=== PATIENT | female | born 1980 | race Caucasian/White ===

== ENCOUNTER 2017-11-04 13:38 | Emergency (ER) | payer OTHER, SELFPAY ==
[2017-11-04 13:48] VITALS: BP 119/85; PULSE 90; RESP 16; TEMP 36.7; O2SAT 98
--- NOTE | 2017-11-04 13:56 | DI.RPTCT_ITS ---
SYMPTOMS/DIAGNOSIS: LUQ AND RLQ ABD PAIN WORSE AFTER EATING CT OF THE ABDOMEN AND PELVIS: There are no priors comparison exams. Images were performed from the lung bases through the ischial tuberosities after IV and without benefit of oral contrast. The lung bases are clear. Stones are noted in the gallbladder. There is a phrygian cap. There is no gallbladder wall thickening or biliary dilatation. The liver, spleen, pancreas and adrenals are unremarkable. There are several right renal cysts. A few tiny cysts are noted on the left kidney. The appendix appears normal. The patient is status post hysterectomy. The bladder is nearly empty. The ovaries are unremarkable. There is no bowel dilatation or inflammatory change. There is no free air or free fluid. The aorta is normal in diameter. IMPRESSION: Cholelithiasis. There is no evidence of acute cholecystitis. No acute abnormality is seen in the abdomen or pelvis.
[2017-11-04 14:12] LABS: Bilirubin Negative (Negative); Blood Negative (Negative); Clarity Clear; Glucose Negative (Negative); Ketones Trace mg/dL (Negative); Leukocyte Esterase Negative (Negative); Nitrite Negative (Negative); Specific Gravity >= 1.030 (1.005-1.025); Urobilinogen 0.2 EU/dL (Up TO 0.2)
[2017-11-04] MEDS: Sucralfate 1 GM TAB PO (14:19)
--- NOTE | 2017-11-04 14:29 | ED.GENADUL_ITS ---
Disposition Clinical Impression: LUQ pain Disposition: HOME Condition: Good Instructions: Gastritis (ED) Additional Instructions: Please take medication as directed. Please avoid any spicy foods, tomato based products, citrus-based products, or mint. If you notice any worsening of your symptoms, or any new symptoms such as vomiting, diarrhea, fever, chills, shortness of breath, chest pain, numbness, weakness, or fainting , please return immediately to the emergency department for reevaluation. Please follow up with your primary care provider as soon as possible for reassessment and reevaluation. As always, it was a pleasure participating in your medical care today. Prescriptions: Pantoprazole [Protonix] 40 mg PO DAILY #60 tabcr Sucralfate [Carafate] 1 gm PO AC & HS #90 tab Referrals: Efrem Babin [Primary Care Provider] - Medical Decision Making - Lab Data Laboratory Tests 11/04/17 14:05 Urine Color Yellow Urine Clarity Clear Urine pH 5.0 Ur Specific [place] >= 1.030 H Urine Protein Negative Urine Ketones Trace H Urine Blood Negative Urine Nitrite Negative Urine Bilirubin Negative Urine Urobilinogen 0.2 Ur Leukocyte Esterase Negative Urine Glucose Negative - Medical Decision Making This is a pleasant 37-year-old female with a past medical history of anemia and a hysterectomy who presents with 4-5 months of left upper quadrant abdominal pain, particularly worse in the last 3-4 days. It is worsened with food, palpation, certain types of movement. She has had no vomiting or diarrhea. Notable reproducible tenderness on exam. Differential at this time includes gastric ulcer, perforated gastric ulcer, as well as appendicitis with right lower quadrant abdominal pain noted on exam. We will get a CT scan to evaluate for any acute process and reevaluate rehydrate and control her pain. EKG 14: 08 Rate 79, sinus rhythm, MA 150, QTc 436, QRS normal, RSR prime in V1. No ST elevations or depressions. Inverted T-wave is present in lead III. No Q waves. No other abnormalities. On repeat evaluation the patient has near complete resolution of her symptomatology. Her pain is gone. She feels much better after GI cocktail and Protonix. I feel her symptoms most likely secondary to gastric ulcer. Still pending results of the CT scan at this time. Patient will be discharged home with close follow-up, prescriptions for antacid therapy. We discussed red flags which to return the patient understands. I have extensively reviewed the treatment plan and discharge instructions with the patient. I have addressed all patient concerns at this time. The patient was made aware of what symptoms to monitor for that would warrant a return to the emergency department. Discussed the plan with the patient, they demonstrate verbal understanding and agreement with our assessment and plan at this time. Pending CT results at this time. The case will be signed out to my colleague History of Present Illness - General Chief complaint: Abd Prob Stated complaint: L FLANK PAIN Time Seen by Provider: 11/04/17 13:55 - History of Present Illness Initial comments: This is a 37-year-old female with a past medical history of anemia in the past surgical history of hysterectomy who presents today for evaluation of left upper quadrant and right lower quadrant pain. Patient states that she has had this pain for the last 4-5 months however over the last 3 days it is gotten particularly notably worse. It is worsened whenever she eats food, as well as laying on the left-hand side. It is not improved by anything. She has associated nausea but no vomiting. She denies diarrhea, hematochezia, or hematemesis. She denies any acholic stool. She denies any hematuria, dysuria, or increase in urinary frequency. She denies any radiation to her right upper side, or her back. She has no other complaints at this time. She denies any pertinent family history. She denies any IV or illicit drug use. - Related Data Pantoprazole [Protonix] 40 mg PO DAILY #60 tabcr 11/04/17 Sucralfate [Carafate] 1 gm PO AC & HS #90 tab 11/04/17 Allergies Allergy/AdvReac Type Severity Reaction Status Date / Time amoxicillin Allergy Severe throat Unverified 11/04/17 13:57 closes azithromycin [From Zithromax] Allergy Severe throat Unverified 11/04/17 13:56 closes Penicillins Allergy Severe throat Unverified 11/04/17 13:57 closes Review of Systems Other: 10 point review of systems was performed, pertinent positives and negatives are noted in the history of present illness. General Exam - Other Other exam information: 1.Const: Well-nourished, Well-developed, appearing stated age 2.Eyes: PERRL, no conjunctival injection, and symmetrical lids. 3.ENT: Atraumatic external nose and ears. Moist MM. Neck: Symmetric, trachea midline, No thyromegaly. 4.CVS: +S1/S2, No murmurs or gallops. Peripheral pulses 2+ and equal in all extremities. Brisk capillary refill in all extremities. 5.RESP: Unlabored respiratory effort. Clear to auscultation bilaterally. No wheezes rales or rhonchi 6.GI: Soft, no guarding or rebound. Mild reproducible tenderness on palpation of the left upper abdominal quadrant as well as the right lower abdominal quadrant. Negative Jacobsen sign. No flank tenderness. Negative obturator and psoas sign. 7.MSK: Normocephalic/Atraumatic, Extremities w/o deformity or ttp No cyanosis or clubbing, Normal movement of all extremities 8.Skin: Warm, Dry. No rashes or lesions. 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 Sensation grossly intact, no focal neurologic deficits. 10.Psych: (AAO) x3. Appropriate mood and affect Course Vital Signs - 24 hr 11/04/17 13:48 Temperature 36.7 C Pulse 90 Respiratory 16 Rate Blood Pressure 119/85 Pulse Oximetry 98
[2017-11-04] MEDS: Normal Saline 1,000 ML 1000 ML IV (14:40)
[2017-11-04] MEDS: Pantoprazole 40 MG VIAL IVP (14:47)
[2017-11-04] MEDS: Normal Saline Flush 10 ML SYR 20 ML (14:49)
[2017-11-04] MEDS: MORPHine 10 MG/ML VIAL 4 MG IVP (14:50)
[2017-11-04 14:54] LABS: Abs Immature Grans 0.01 k/cumm (0.0-0.09); Absolute Basophil Count 0.01 k/cumm (0.0-0.2); Absolute Eosinophil Count 0.13 k/cumm (0.0-0.7); Absolute Lymphocyte Count 1.25 k/cumm (1.2-3.4); Absolute Monocyte Count 0.27 k/cumm (0.11-0.7); Absolute Neutrophil Count 3.52 k/cumm (1.2-6.7); Basophils % 0.2; Eosinophils % 2.5; HCT 39.1 % (36.0-46.0); HGB 12.9 g/dL (12.0-15.5); Immature Grans % 0.2; Lymphocytes % 24.1; Mean Corpuscular Hemoglobin 25.4 pg (27.0-33.0); Mean Corpuscular Volume 77.1 fL (80-95); Mean Platelet Volume 9.5 fL (8.0-11.0); Monocytes % 5.2; Neutrophils % 67.8; Platelet Count 276 x1000/uL (130-400); RBC 5.07 m/cumm (4.00-5.20); RBC Distribution Width 14.8 % (11.7-14.6); White Blood Cell Count 5.19 k/cumm (4.4-10.8)
[2017-11-04 15:12] LABS: ALT 20 U/L (12-78); AST 14 U/L (15-37); Albumin 3.9 g/dL (3.4-5.0); Alkaline Phosphatase 60 U/L (46-116); Anion Gap 6.3 mmol/L (3-11); BUN 5 mg/dL (7-18); Bilirubin, Total 0.4 mg/dL (0.2-1.0); CO2 27.7 mmol/L (21.0-32.0); Calcium 8.5 mg/dL (8.5-10.1); Chloride 103 mmol/L (98-107); Glucose 103 mg/dL (70-100); Lipase 85 U/L (73-393); Potassium 3.7 mmol/L (3.5-5.1); Sodium 137 mmol/L (136-145); Total Protein 8.2 g/dL (6.4-8.2)
[2017-11-04 15:14] LABS: Troponin I < 0.02 ng/mL (0.00-0.06)
[2017-11-04] MEDS: Omnipaque 350 MG/ML 100 ML BTL IJ (15:15)
[2017-11-04 15:37] VITALS: BP 109/62; PULSE 74; RESP 14; TEMP 36.5; O2SAT 96
[2017-11-04 16:24] VITALS: BP 104/66; PULSE 74; RESP 14; TEMP 36.6; O2SAT 99
== END 2017-11-04 16:39 | disposition home or self-care (01) ==
PROVIDERS: Emergency Provider Student in an Organized Health Care Education/Training Program; PCP Nurse Practitioner Family
DX: R10.12 Left upper quadrant pain (principal)
CPT/HCPCS: 36415; 80053; 83690; 93005; 96361; 96374; 96375; 99285; 74177; 81003; 84484; 85025; 93010; 99284; J2270; J3490

== ENCOUNTER 2018-10-18 15:48 | Emergency (ER) | payer OTHER, SELFPAY ==
[2018-10-18 15:51] VITALS: BP 135/86; PULSE 89; RESP 16; TEMP 36.7; O2SAT 100
[2018-10-18] MEDS: Ondansetron O.D.T. 4 MG TABEF PO ×2 (17:46→19:10)
[2018-10-18] MEDS: Meclizine 25 MG TAB PO ×2 (17:46→19:10)
[2018-10-18 17:47] VITALS: RESP 16
--- NOTE | 2018-10-18 18:59 | W.ED.GENAD ---
Discharge Plan Disposition Patient Disposition: HOME Condition: Stable Discharge Details Chief Complaint: Dizzy/Sync Clinical Impression: Benign paroxysmal positional vertigo Primary Care Provider: Efrem Babin ED Provider: Fransisco Silva Home Meds and New Rx's Prescriptions: New meclizine 25 mg tablet 25 mg PO TID PRN (Reason: dizziness) Qty: 20 RF: 0 ondansetron 4 mg tablet,disintegrating 4 mg PO Q8H PRN (Reason: nausea and vomiting) Qty: 14 RF: 0 Continued omeprazole 20 mg Tablet,Delayed Release (Dr/Ec) 20 mg PO DAILY RF: 0 Discharge Instructions Instructions: Benign Paroxysmal Positional Vertigo (ED) Additional Instructions: Please take medication as prescribed and avoid rapid movements as this may increase your symptoms. You may continue to perform Anton maneuver as instructed 3 times daily to see if this also helps with your symptoms. Feel free to return to the emergency department immediately for any new or significant worsening of symptoms. Otherwise follow-up with your primary care provider as needed for reassessment Referrals: Efrem Babin [Primary Care Provider] - (As needed for reassessment) Discharge Data Discharge Date/Time-TO BE ENTERED AT DEPARTURE: 10/18/18 19:16 Medical Decision Making Patient presenting to the emergency department for chief complaint of dizziness. She states started 3 days ago when she sat up quickly from a chair. Patient denies any focal neurological symptoms but does state the symptoms are worse in the morning do seem to slightly improve throughout the course of the day. Physical exam does show no nystagmus but when performing Neela-Hallpike maneuver patient does have increased symptoms to the right. Anton's maneuver was immediately performed and after patient upright she was given meclizine and Zofran to help with symptoms. This seemed to moderately help with symptoms. Physical exam though also does reveal slightly reddened TM on the right. Patient denies any recent cough cold or nasal congestion but this is highly suspected possible cause of benign positional vertigo. Patient did have negative hints exam, normal cranial nerve exam, and unremarkable remainder of physical exam patient prescribed meclizine and Zofran for home use and instructed on further Anton's maneuver at home. Return precautions were discussed. After discussion of diagnosis and plan of care patient has no further needs, questions, or concerns and states clear understanding to return to the emergency department for any worsening symptoms. HPI General Mode of arrival: ambulatory. Date/Time Provider Initiated Documentation: 10/18/18 15:56. Limitations to Documentation: no limitations. Information obtained by: patient and RN notes reviewed. History of Present Illness 37 year old F presents to the emergency department with the chief complaint of dizzness, described as moderate, Patient started experiencing this day(s) (3) and it has been constant. Movement improves symptom(s), (Position change) Patient did receive the following treatments prior to arrival, none Related Data Home Medications Medication Instructions Recorded Confirmed meclizine 25 mg PO TID PRN #20 tab 10/18/18 omeprazole 20 mg PO DAILY 10/18/18 10/18/18 ondansetron 4 mg PO Q8H PRN #14 tab 10/18/18 Previous Rx's Medication Instructions Recorded meclizine 25 mg PO TID PRN #20 tab 10/18/18 ondansetron 4 mg PO Q8H PRN #14 tab 10/18/18 Allergies Allergy/AdvReac Type Severity Reaction Status Date / Time amoxicillin Allergy Severe throat Unverified 10/18/18 15:55 closes azithromycin [From Zithromax] Allergy Severe throat Unverified 10/18/18 15:55 closes Penicillins Allergy Severe throat Unverified 10/18/18 15:55 closes General Stated Complaint: Dizzy/Sync BRENDA: 3 Review of Systems Constitutional Denies fever(s) and Denies headache(s) Eyes Denies change in vision ENT Reports dizziness and Denies headache(s) Cardiovascular Denies chest pain and Denies syncope Gastrointestinal Reports abdominal pain (Which patient states has been followed up by pcp), Denies nausea and Denies vomiting Neurologic Reports as per HPI, Reports dizziness, Denies syncope, Denies headache(s) and Denies sensory deficit PFSH Medical History (Updated 10/18/18 @ 15:57 by Cassidy Mendieta) History of hysterectomy (Chronic) Surgical History (Updated 10/18/18 @ 15:57 by Cassidy Mendieta) Hx of cholecystectomy (Chronic) Social History Smoking/Tobacco Use Status: Never Alcohol Intake: never Drug use: Never Substance use type: does not use Do you feel safe at home: Yes Do you feel safe in your relationship?: Yes Exam Const General: cooperative, healthy appearing, no acute distress and well groomed Orientation: alert, awake and oriented x3 [facility] Head: normal to inspection Ears: hearing grossly normal bilaterally, TM normal on the left and TM abnormal erythematous (mild) on the right Mouth: oral mucosae normal and moist mucous membranes Throat: posterior oropharynx normal Eyes Visual Duke: normal visual duke by confrontation Alignment and Position: alignment normal Periorbital: periorbital findings normal Eyelids: eyelids normal Sclera: sclerae normal Cornea: corneas normal Pupils: PERRL EOM: EOM intact bilaterally Neck Neck: normal visual inspection, full ROM, no lymphadenopathy and no meningeal signs Resp Effort & Inspection: normal respiratory effort and able to speak in complete sentences Auscultation: clear to auscultation bilaterally Cardio Rate: regular rate Rhythm: regular rhythm Heart Sounds: S1 normal and S2 normal Neuro General: alert, awake, oriented x3, gait normal, tone normal, moves all extremities, CN's II-XI intact bilaterally, not confused, [place] Hallpike (to the right) and other (neg hints exam) Cognition: normal cognition Speech: speech normal Motor: muscle tone normal throughout, strength 5/5 throughout, no pronator drift, no movement abnormalities noted and no fasciculations Sensory Exam: no sensory deficits noted Coordination: [id number] test normal, Romberg test normal, Does not sway with eyes open and rapid alternating movement UE normal Course Vital Signs Temperature 36.7 C 10/18/18 15:51 Pulse 89 10/18/18 15:51 Respiratory Rate 16 10/18/18 15:51 Blood Pressure 135/86 10/18/18 15:51 Pulse Oximetry 100 10/18/18 15:51 Temperature 36.7 C 10/18/18 15:51 Temperature Source Skin 10/18/18 15:51 Pulse 89 10/18/18 15:51 Respiratory Rate 16 10/18/18 17:47 Respiratory Effort Non-Labored 10/18/18 17:47 Respiratory Depth Normal 10/18/18 17:47 Respiratory Pattern Normal 10/18/18 17:47 Blood Pressure 135/86 10/18/18 15:51 Pulse Oximetry 100 10/18/18 15:51 Pain Level 4 10/18/18 15:51
[2018-10-18 19:11] VITALS: BP 111/76; PULSE 83; RESP 16; O2SAT 97
== END 2018-10-18 19:16 | disposition home or self-care (01) ==
PROVIDERS: Emergency Provider Nurse Practitioner Family; PCP Nurse Practitioner Family
DX: H81.10 Benign paroxysmal vertigo, unspecified ear (principal)
CPT/HCPCS: 99283

== ENCOUNTER 2020-02-10 21:38 | Emergency (ER) | payer BC, SELFPAY ==
[2020-02-10 21:44] VITALS: BP 156/84; PULSE 100; RESP 16; TEMP 36.6; O2SAT 98
--- NOTE | 2020-02-10 21:56 | ED.GENADUL_ITS ---
Discharge Plan Disposition Patient Disposition: HOME Condition: Improving Discharge Details Clinical Impression: Sprain of coracoclavicular ligament of left shoulder Primary Care Provider: Efrem Babin ED Provider: Wale Armstrong Home Meds and New Rx's Prescriptions: Continued omeprazole 20 mg Tablet,Delayed Release (Dr/Ec) 20 mg PO DAILY RF: 0 meclizine 25 mg tablet 25 mg PO TID PRN (Reason: dizziness) Qty: 20 RF: 0 ondansetron 4 mg tablet,disintegrating 4 mg PO Q8H PRN (Reason: nausea and vomiting) Qty: 14 RF: 0 Discharge Instructions Instructions: Shoulder Pain (ED), Shoulder Sprain (ED) Additional Instructions: We will ask our care management team to help you get a appointment in orthopedic clinic for follow-up. As we discussed, call the office at [phone] for an appointment time. Wear the sling when awake and out of bed. I ice to area to reduce discomfort. Continue Tylenol and/or ibuprofen as needed for the pain. Return to the ER for any acute concerns. Medical Decision Making 39-year-old female who slipped and fell outside on a dirt driveway while playing with her dog. She struck her left elbow and shoulder. She did not suffer a loss of consciousness. On exam she is tender overlying the distal clavicle and AC joint. Referred for XRay: No bony fracture, there is increased coracoclavicular distance suggesting ligamentous injury. Will place in a sling and have the patient follow-up in orthopedic clinic. She is stable and appropriate for discharge to home. HPI General Mode of arrival: ambulatory . Date/Time Provider Initiated Documentation: 02/10/20 21:39 . Limitations to Documentation: no limitations . Information obtained by: patient . History of Present Illness 39 year old F presents to the emergency department with the chief complaint of Fall, left shoulder pain, described as moderate, Quality is described as dull and constant, and is localized to the left and upper extremity. Patient reports no radiation. Patient started experiencing this minute(s) and it has been constant. No relieving factors improve symptom(s), Movement worsens symptoms . Patient notes denies headaches, syncope and weakness. Patient did receive the following treatments prior to arrival, cold therapy Related Data Home Medications Medication Instructions Recorded Confirmed meclizine 25 mg PO TID PRN #20 tab 10/18/18 omeprazole 20 mg PO DAILY 10/18/18 10/18/18 ondansetron 4 mg PO Q8H PRN #14 tab 10/18/18 Previous Rx's Medication Instructions Recorded meclizine 25 mg PO TID PRN #20 tab 10/18/18 ondansetron 4 mg PO Q8H PRN #14 tab 10/18/18 Allergies Allergy/AdvReac Type Severity Reaction Status Date / Time amoxicillin Allergy Severe throat Unverified 10/18/18 15:55 closes azithromycin [From Zithromax] Allergy Severe throat Unverified 10/18/18 15:55 closes Penicillins Allergy Severe throat Unverified 10/18/18 15:55 closes General Stated Complaint: Orthopedic BRENDA: 3 Review of Systems Narrative: No loss of conscious. Denies any headache, neck/chest/back pain. No weakness or numbness. 8 systems reviewed and otherwise negative [facility] Surgical History (Updated 10/18/18 @ 15:57 by Cassidy Mendieta) History of hysterectomy Hx of cholecystectomy Social History Smoking/Tobacco Use Status: Never Smoking risk assessment performed?: Yes Alcohol Intake: never Drug use: Never Substance use type: does not use Do you feel safe at home: Yes Do you feel safe in your relationship?: Yes Exam Narrative Exam Narrative: GEN: awake, alert, oriented 3. Pleasant, well groomed, interactive. HEAD: Normocephalic, atraumatic ENT: Mucous membranes moist, oropharynx unremarkable, External ear exam unremarkable EYES: PERRL, EOMI NECK: Full ROM, Mild left paraspinous muscular tenderness. No midline step-off or deformity. no menigismus CHEST/RESP: Nontender, clear to auscultation bilateral, no wheeze/rhonchi/rales CARDIOVASCULAR: RRR, no murmur, rub juan francisco. 2+ Rad pulse bilateral EXT: Left range of motion limited by pain but appears intact throughout. Motor and sensory testing within normal limits. Left AC joint and distal clavicle tenderness to palpation. no edema, no rash Neuro: Grossly normal neurologic exam, conversant, interactive. Psych: Speech fluent, thoughts congruent, affect normal Course Vital Signs Vital signs: Vital Signs Temperature 36.6 C 02/10/20 21:44 Pulse 100 H 11/25/20 21:44 Respiratory Rate 16 02/10/20 21:44 Blood Pressure 156/84 H 02/10/20 21:44 Pulse Oximetry 98 02/10/20 21:44 Temperature 36.6 C 02/10/20 21:44 Temperature Source Temporal Artery Scan 02/10/20 21:44 Pulse 100 H 02/10/20 21:44 Respiratory Rate 16 02/10/20 21:44 Respiratory Effort 02/10/20 21:54 Blood Pressure 156/84 H 02/10/20 21:44 Blood Pressure Position Sitting 02/10/20 21:44 Pulse Oximetry 98 02/10/20 21:44 Oxygen Delivery Method Room Air 02/10/20 21:44 Oxygen Flow Rate 0 02/10/20 21:44
[2020-02-10] MEDS: Ibuprofen 800 MG TAB PO (22:06)
--- NOTE | 2020-02-10 22:18 | DI.RAD_ITS ---
EXAM: XR SHOULDER LT COMPLETE 2+V CLINICAL HISTORY: L ac pain. TECHNIQUE: 2D digital imaging was performed. COMPARISON: No exams were available for comparison FINDINGS: There are no fractures or dislocation. Subacromial space is not diminished. No degenerative changes of glenohumeral joint. Small 2 millimeter calcification is noted in the soft tissues just above the greater troch tuberosity. AC joint unremarkable. IMPRESSION: Small calcifications subacromial space at the level of the greater tuberosity consistent with calcifi c tendinitis. DATA REPOSITORY: RADIATION DOSE DELIVERED:
[2020-02-10] MEDS: Ondansetron 0.8 MG/ML Solution 4 MG PO (22:26)
[2020-02-10 22:43] VITALS: BP 133/87; PULSE 98; RESP 16; TEMP 36.9; O2SAT 98
--- NOTE | 2020-02-10 23:18 | DI.VRAD_ITS ---
PROCEDURE INFORMATION: Exam: XR Left Shoulder Exam date and time: 02/10/2020 9:57 PM Age: 39 years old Clinical indication: Injury or trauma; Fall; Blunt trauma (contusions or hematomas); Shoulder; Left; Injury date: 02/10/20 TECHNIQUE: Imaging protocol: XR Left shoulder. Views: 2 or more views. COMPARISON: No relevant prior studies available. FINDINGS: Bones/joints: There is no evidence of acute fracture. The coracoclavicular distance is increased measuring up to 20 mm (normal 11-13 mm). The glenohumeral and acromioclavicular joints appear intact. There are no lytic or blastic skeletal lesions present. Soft tissues: No soft tissue swelling is identified. Metallic objects at left chest wall are likely related to patient's garment. IMPRESSION: 1. No acute fracture. 2. Increased coracoclavicular distance may suggest ligamentous injury. Correlate with physical examination findings for this possibility. Dictated and Authenticated by: Carrol Haider MD. Ordering:NIRAV Echevarria MD
== END 2020-02-10 23:30 | disposition home or self-care (01) ==
PROVIDERS: Emergency Provider Emergency Medicine; PCP Nurse Practitioner Family
DX: S43.82XA Sprain of other specified parts of left shoulder girdle, initial encounter (principal); W18.39XA Other fall on same level, initial encounter
CPT/HCPCS: 99283; 73030; J8597; L3650

== ENCOUNTER 2020-02-16 17:20 | Emergency (ER) | payer BC, SELFPAY ==
[2020-02-16 17:29] VITALS: BP 135/81; PULSE 96; RESP 20; TEMP 36.6; O2SAT 97
--- NOTE | 2020-02-16 17:38 | ED.GENADUL_ITS ---
Discharge Plan Disposition Patient Disposition: HOME Condition: Good Discharge Details Clinical Impression: Muscle spasm, Facial tingling Primary Care Provider: Efrem Babin ED Provider: Juana Cano Home Meds and New Rx's Prescriptions: New lidocaine [Lidoderm] 5 % adhesive patch,medicated 1 patch topical DAILY PRN (Reason: pain) Qty: 15 RF: 0 Continued ibuprofen 200 mg Tablet 200 mg PO Q6H PRNRF: 0 Discharge Instructions Instructions: Muscle Spasm (ED) Additional Instructions: Encourage water intake. Encourage gentle stretching as discussed. Please continue with 600 mg of ibuprofen and/or 1000 mg of Tylenol every 6 hours. Maximum of 4000 mg of Tylenol per day. Please continue with sling to help with discomfort but do try to encourage gentle range of motion. You may try topical patches such as lidocaine patches. Please follow-up with your primary care within the next week for reevaluation. If you develop fever/chills, headache, visual change, weakness or other new/worsening symptoms please seek care urgently once again. Referrals: Efrem Babin [Primary Care Provider] - Discharge Data Discharge Date/Time-TO BE ENTERED AT DEPARTURE: 02/16/20 18:26 Medical Decision Making Patient is a pleasant [id number] female presenting to it today for reevaluation of her left shoulder. She is seen here 5 days ago after she fell while playing with her dog. Patient was diagnosed with coracoclavicular ligament sprain. She has continued to use her sling as was previously directed. Continues to endorse pain along the clavicle. Has had minimal ROM. XR reviewed and no bnoy abnormality noted by radiologist or myself. Paitnet was unclear if this area had been imaged. She also reports that she has some intermittent tingling in the left side of her face. No exacerbating factors. She states she can occasionally have pain emanating from left lower aspect of the jaw. She denies pain with chewing. She denies weakness, BERUMEN, visual changes. She states she has some left neck tightness along the left side. Patient indicates sepideh lenght of the trapezius with pain going to the left shoulder. On exam, she appears nontoxic. I see no evidence of acute trauma. Seh denies any further trauma. She has full ROM of her neck. She has visible and palpable muscle dariel along the trapezius where patient has her tightness. She has normal CN. No evidence of dental infection. No swelling under her tongue. NEurological exam normal. No bruit. Normal sensation at this time. Symptoms are not elicited on exam with Spurlings or tinels over the facial nerve. Gait is normal, sh ehas not noted any gait or balance disturbance. Patient and I discussed potential pathoogy and further workup. We discussed CT imaing of her head/neck but after shared decision making have decided to hold off. I do not see evidence to suggest stroke, cervical artery dissection, nerve compression, dental infection, Ludwigs, undiagnosed fracture. She has excellent stringth in all extremities. She appears comfortable. She does have a muscle s pasm. She and I discussed conservative management of this with stretching, massage, Tylenoland/or Ibuporfen, topical pain mangement. Will apply Lidoderm patch. She was unable to get f/u with orthopedics for >2 weeks. I advised she f/u sooner with PCP. Return precautions were discussed. All of her questions and concerns were addressed, she is in agreement with this plan. HPI General Mode of arrival: ambulatory . Date/Time Provider Initiated Documentation: 02/16/20 17:34 . Limitations to Documentation: no limitations . Information obtained by: patient, RN notes reviewed and old records reviewed . History of Present Illness 39 year old F presents to the emergency department with the chief complaint of left shoulder pain, tingling in left side of face, described as moderate, with intensity rated at 6. Quality is described as aching, and is localized to the left and upper extremity. Patient neck (left side of neck). Patient started experiencing this day(s) (5) and it has been intermittent. Immobilization improves symptom(s), Movement worsens symptoms . Patient notes no other symptoms.. Patient did receive the following treatments prior to arrival, NSAID Related Data Home Medications Medication Instructions Recorded Confirmed ibuprofen 200 mg PO Q6H PRN 02/16/20 02/16/20 lidocaine [Lidoderm] 1 patch TOPICAL DAILY PRN #15 ea 02/16/20 Previous Rx's Medication Instructions Recorded lidocaine [Lidoderm] 1 patch TOPICAL DAILY PRN #15 ea 02/16/20 Allergies Allergy/AdvReac Type Severity Reaction Status Date / Time amoxicillin Allergy Severe throat Unverified 02/16/20 17:33 closes azithromycin [From Zithromax] Allergy Severe throat Unverified 02/16/20 17:33 closes Penicillins Allergy Severe throat Unverified 02/16/20 17:33 closes General Stated Complaint: Orthopedic BRENDA: 3 Review of Systems Constitutional Constitutional: Reports as per HPI, Denies chills, Denies fever(s), Denies headache(s) and Denies weakness ENT Ears, Nose, Mouth, and Throat: Denies change in voice, Denies dental pain, Denies vertigo, Denies dizziness, Denies otalgia, Denies facial pain, Denies headache(s), Reports neck pain (left side along trapezius), Denies disequilibrium and Denies throat swelling Cardiovascular Cardiovascular: Reports as per HPI, Denies chest pain and Denies dyspnea Respiratory Respiratory: Reports as per HPI, Denies cough and Denies dyspnea Gastrointestinal Gastrointestinal: Denies nausea and Denies vomiting Musculoskeletal Musculoskeletal: Reports as per HPI, Denies limited range of motion, Denies muscle weakness, Reports neck pain (left side along trapezius), Denies numbness, Denies radiating pain into limb and Denies tingling (not in the left arm. Inter mittent tingling left face) Integumentary/Breasts Skin/Breast: Reports as per HPI, Denies rash and Denies wounds Neurologic Neurologic: Reports as per HPI, Denies vertigo, Denies dizziness, Denies headache(s), Denies numbness, Denies tingling (not in the left arm. Intermittent tingling left face), Denies paresthesias, Denies disequilibrium and Denies weakness Allergic/Immunologic Allergic/Immunologic: Denies throat swelling [facility] Surgical History History of hysterectomy Hx of cholecystectomy Social History Smoking/Tobacco Use Status: Never Smoking risk assessment performed?: Yes Alcohol Intake: never Drug use: Never Substance use type: does not use Do you feel safe at home: Yes Do you feel safe in your relationship?: Yes Exam Const General: cooperative, healthy appearing, comfortable, no acute distress, well developed and well groomed Nutritional Appearance: average body habitus and well nourished Orientation: alert and awake [facility] Head: normal to inspection, normocephalic and atraumatic Ears: hearing grossly normal bilaterally, external ears normal and TM's normal bilaterally General nose exam: external nose normal Face and sinus: normal facial exam, sinuses nontender, face symmetric, no crepitus, no ecchymosis, no erythema, no edema, no tenderness and other (negative [place], no pain with this percussion) Mouth: oral mucosae normal, lip normal, tongue normal, oropharynx normal, moist mucous membranes, no audible dysphonia, no trismus and No restricted motion Teeth and gingiva: poor dentition (no pain with palpation about left lower dentition) Throat: posterior oropharynx normal, tonsils normal and uvula midline Eyes General: appearance normal, both eyes and all related structures Neck Neck: normal visual inspection, no lymphadenopathy, no meningeal signs, trachea midline and supple Carotids: normal carotid upstroke and no bruits Resp Effort & Inspection: normal respiratory effort, able to speak in complete sentences and no respiratory distress Auscultation: clear to auscultation bilaterally Cardio Rate: regular rate Rhythm: regular rhythm Heart Sounds: S1 normal and S2 normal Back/Spine/Pelvis Cervical Spine: normal cervical lordosis, cervical ROM normal, cervical muscular tenderness (left lateral trapezius), pain with cervical ROM (along trapezius), cervical spasm, No cervical spinal tenderness (no midline tenderness), No step off deformity and No cervical ROM abnormal Skin General skin exam: no rashes or lesions noted Lesions: no lesions Rashes: no rashes Trauma: no lacerations or abrasions Neuro General: patient alert, patient awake and patient oriented x3 Cranial Nerves: CN's II-XI intact bilaterally Cognition: normal cognition Speech: speech normal Gait: normal gait Motor: muscle tone normal throughout, strength 5/5 throughout, no pronator drift, no movement abnormalities noted, no fasciculations, no tremors and normal tone Sensory Exam: no sensory deficits noted DTR's: Rt Biceps: 2+, Lt Biceps: 2+, Rt Brachioradialis: 2+ and Lt Brachioradialis: 2+ Coordination: [id number] test normal and rapid alternating movement UE normal Psych Appearance: grossly normal and well kempt Mental Status: mental status grossly normal Speech and Movement: speech and movement normal Course Vital Signs Vital signs: Vital Signs Temperature 36.6 C 02/16/20 17:29 Pulse 96 H 02/16/20 17:29 Respiratory Rate 20 02/16/20 17:29 Blood Pressure 135/81 02/16/20 17:29 Pulse Oximetry 97 02/16/20 17:29 Temperature 36.6 C 02/16/20 17:29 Temperature Source Skin 02/16/20 17:29 Pulse 96 H 02/16/20 17:29 Respiratory Rate 20 02/16/20 17:29 Blood Pressure 135/81 02/16/20 17:29 Blood Pressure Position Sitting 02/16/20 17:29 Pulse Oximetry 97 02/16/20 17:29 Oxygen Delivery Method Room Air 02/16/20 17:29 Oxygen Flow Rate 0 02/16/20 17:29 Pain Level 6 02/16/20 17:29
[2020-02-16] MEDS: Lidocaine 5% Patch 1 PATCH TP (18:21)
== END 2020-02-16 18:26 | disposition home or self-care (01) ==
PROVIDERS: Emergency Provider Physician Assistant; PCP Nurse Practitioner Family
DX: M62.838 Other muscle spasm (principal); R20.2 Paresthesia of skin
CPT/HCPCS: 99282; 99283

== ENCOUNTER 2024-04-14 11:53 | Emergency (ER) | payer SELFPAY ==
--- NOTE | 2024-04-14 12:00 | RT.EKG_ITS ---
APPROVED REPORT Exam: Resting ECG Reason for Exam: SOB Patient Location: E HR:125 bpm ECG Measurements Heart Rate 125 AXIS IL 138 P 23 QRSd 80 QRS 18 QT 309 T 7 QTc 446 Conclusion Sinus tachycardia, rate 125 No interval abnormalities No STEMI No priors available for comparison
[2024-04-14 12:13] VITALS: BP 108/82; PULSE 131; RESP 26; TEMP 36.7; O2SAT 97
--- NOTE | 2024-04-14 12:50 | DI.RAD_ITS ---
Exam(s) XR CHEST 2V PA LATERAL EXAM: XR CHEST 2V PA LATERAL CLINICAL HISTORY: cough, Sob TECHNIQUE: 2D digital imaging was performed of the chest. Two images were obtained. PA and lateral views were obtained. COMPARISON: No exams were available for comparison FINDINGS: MEDIASTINUM: Normal. HEART: Normal. PULMONARY VASCULATURE: Normal. LUNGS: Clear. PLEURAL SPACE: No pleural effusion or pneumothorax. BONE:Within normal limits for the patient's age. OTHER FINDINGS:Normal. IMPRESSION: No acute pulmonary findings. DATA REPOSITORY: RADIATION DOSE DELIVERED:
[2024-04-14 13:10] VITALS: BP 115/70; PULSE 123; RESP 18; TEMP 36.6; O2SAT 96
[2024-04-14 13:11] LABS: COVID-19 PCR Negative (Negative); Influenza A PCR Negative (Negative); Influenza B PCR Positive (Negative); RSV PCR Negative (Negative)
[2024-04-14 13:12] LABS: Source Nasopharynx
--- NOTE | 2024-04-14 13:25 | ED.GENADUL_ITS ---
Discharge Plan Disposition Patient Disposition: Home Condition: Stable Discharge Details Clinical Impression: Influenza B Primary Care Provider: Florinda Santos ED Provider: Salma Caldwell Home Meds and New Rx's Prescriptions: New prednisone 50 mg tablet 50 mg PO DAILY 5 Days Qty: 5 0RF Rx Instructions: Take 1 tablet daily for the next 5 days No Action ibuprofen 200 mg Tablet 200 mg PO Q6H PRN Discharge Instructions Instructions: Flu, Adult ED Additional Instructions: You have tested positive for influenza B at this time. Please use the albuterol inhaler 1 or 2 puffs every 4-6 hours as needed for shortness of breath. Take the prednisone 1 tablet a day for the next 5 days. You may take [id number] cough and cold remedies as directed. Increase oral fluids vitamin C. Chest x-ray within normal limits no evidence for pneumonia at this time. Follow up with primary care provider in 3-5 days. Return to ED sooner if any worsening or concerns. Referrals: Florinda Santos [Primary Care Provider] - 5 days HPI General Mode of arrival: ambulatory . Date/Time Provider Initiated Documentation: 04/14/24 11:56 . Limitations to Documentation: no limitations . Information obtained by: patient, RN notes reviewed and old records reviewed . HPI Narrative: 43-year-old female presents to the ER with a chief complaint of shortness of breath and chest pain since Saturday. URI type symptoms and cough. She does report sick contacts within her family. She is somewhat tachycardic upon arrival. Testing positive for influenza B. Chest x-ray within normal limits. Related Data Home Medications ?Medication ?Instructions ?Recorded ?Confirmed ibuprofen 200 mg tablet 200 mg PO Q6H PRN 02/16/20 04/14/24 prednisone 50 mg tablet 50 mg PO DAILY Inflammation 5 days 04/14/24 #5 tabs Previous Rx's ?Medication ?Instructions ?Recorded prednisone 50 mg tablet 50 mg PO DAILY Inflammation 5 days 04/14/24 #5 tabs Allergies Allergy/AdvReac Type Severity Reaction Status Date / Time amoxicillin Allergy Severe throat Verified 04/14/24 12:10 closes azithromycin (From Zithromax) Allergy Severe throat Verified 04/14/24 12:10 closes Penicillins Allergy Severe throat Verified 04/14/24 12:10 closes General Stated Complaint: SOB BRENDA: 3 Review of Systems All systems reviewed & are unremarkable except as noted in HPI and below Constitutional Constitutional: Reports body ache(s) ENT Ears, Nose, Mouth, and Throat: Reports as per HPI and Reports nasal congestion Cardiovascular Cardiovascular: Reports dyspnea Respiratory Respiratory: Reports cough and Reports dyspnea Exam Narrative Exam Narrative: Constitutional: Alert and oriented x3. Appears stated age. Obese body habitus. Head: Normocephalic, no trauma. Eyes: Pupils PERRL, Red reflex noted, EOM's intact. Eyelids symmetrical without lesions, discharge, or swelling. ENT: Bilateral TM's WNL, External ear normal to inspection, no mastoid TTP, swelling, or erythema, Nasal turbinates WNL, no nasal discharge. Normal dentition, Posterior pharynx WNL, no exudate. Chest: Mild tachycardia, normal S1, S2, distal pulses intact. Resp: Lungs clear to auscultation bilaterally, no wheezes, rales, or rhonchi. Abdomen: Soft, non-distended, Normoactive bowel sounds all 4 quads. Musculoskeletal: Normal gait, Moves all 4 extremities without difficulty. Skin: No suspicious rashes or lesions. Capillary refill less than 2 sec. Neurologic: Cranial nerves II-XII intact. Alert and oriented x 3. Motor: No deficits noted. Sensory: Intact bilaterally all 4 extremities. Hematologic/Lymphatic: No ecchymosis, no lymphadenopathy. Course Vital Signs Vital signs: Vital Signs Temperature 36.7 C 04/14/24 12:13 Pulse 131 H 04/14/24 12:13 Respiratory Rate 26 H 04/14/24 12:13 Blood Pressure 108/82 04/14/24 12:13 Pulse Oximetry 97 04/14/24 12:13 Temperature 36.6 C 04/14/24 13:10 Temperature Source Oral 04/14/24 13:10 Pulse 123 H 04/14/24 13:10 Respiratory Rate 18 04/14/24 13:10 Blood Pressure 115/70 04/14/24 13:10 Blood Pressure Position Sitting 04/14/24 13:10 Pulse Oximetry 96 04/14/24 13:10 Oxygen Delivery Method Room Air 04/14/24 13:10 Oxygen Flow Rate 0 04/14/24 12:13 Pain Level 5 04/14/24 12:13 Lab/Test Results Lab/Test Results: Laboratory Tests Range/Units 04/14/24 12:27 COVID-19 Source Nasopharynx SARS-CoV-2 (PCR) (Negative) Negative Influenza Type A (PCR) (Negative) Negative Influenza Type B (PCR) (Negative) Positive A RSV (PCR) (Negative) Negative Medical Decision Making 43-year-old female presents to the ER with a chief complaint of shortness of breath and chest pain since Saturday. URI type symptoms and cough. She does report sick contacts within her family. She is somewhat tachycardic upon arrival. Testing positive for influenza B. Chest x-ray within normal limits. Will give an albuterol inhaler to go and prednisone for the next 5 days. Instructed on home care and follow-up care she verbalized understanding. O2 sat has maintained 96% or greater throughout the remainder of her stay. This text was generated using [employer] dictation system, please disregard any oddities of phrase or misspellings. Quality:SDOH Health Related Social Needs: No Data to Display PFSH All Active Problems (Updated 04/14/24 @ 13:29 by Salma Caldwell NP) Influenza B (Acute) Surgical History History of hysterectomy Hx of cholecystectomy Social History Smoking/Tobacco Use Status: Never Smoking risk assessment performed?: Yes Alcohol Intake: never Drug use: Never Substance use type: does not use Housing: house Do you feel safe at home: Yes Do you feel safe in your relationship?: Yes
[2024-04-14 13:27] VITALS: RESP 20
[2024-04-14] MEDS: predniSONE 20 MG TAB 60 MG PO (13:36)
[2024-04-14] MEDS: Albuterol HFA 8 GM 60 PUFF INH IH (13:37)
[2024-04-14] MEDS: Inhaler, Assist Device 1 EACH MC (13:37)
== END 2024-04-14 13:44 | disposition home or self-care (01) ==
PROVIDERS: Emergency Provider Registered Nurse Emergency; PCP Internal Medicine
DX: J10.1 Influenza due to other identified influenza virus with other respiratory manifestations (principal)
CPT/HCPCS: 87637; 93005; 99284; 71046; 93010; J7512